=== PATIENT | female | born 1995 | race Caucasian/White ===

== ENCOUNTER 2016-10-22 16:56 | Emergency (ER) | payer OTHER ==
[~2016-10-22] VITALS: Ht 167.6 cm; Wt 89.5 kg
[~2016-10-22 16:56] MED LIST: DEPO-PROVER150 MG/ML IM; MOTRIN800 MG PO; VITAMIN D32000 UNI1 PO
[2016-10-22 17:50] LABS: POINT-OF-CARE METER ID UU13113778
[2016-10-22 19:00] LABS: HEMATOCRIT 45.1 % (36.0-46.0); MCH 29.7 PG (29.0-34.0); MCHC 34.4 G/DL (30.0-36.0); MCV 86.4 FL (83-99); MEAN PLAT.VOLUME 8.9 uM^3 (9.5-12.4); PLATELET COUNT 363 K/uL (156-360); RBC DIS.WIDTH-CV 12.3 % (11.8-14.6); RBC DIS.WIDTH-SD 38.8 % (39-53); RED BLOOD COUNT 5.22 M/uL (3.80-5.20); WHITE BLOOD COUNT 10.1 K/uL (4.1-10.2)
[2016-10-22 19:08] LABS: CHLORIDE 108 mEq/L (99-109); SODIUM 142 mEq/L (136-147)
[2016-10-22 19:10] LABS: GLUCOSE 88 mg/dL (70-99)
[2016-10-22 19:11] LABS: ANION GAP 13 MEQ/L (2-14)
[2016-10-22 19:14] LABS: GFR ESTIMATE (CALCULATED) > 59 mL/min/
[2016-10-22 19:15] LABS: UREA NITROGEN (BUN) 11 mg/dL (9-23)
[2016-10-22 19:21] LABS: TROP-I INTERPRETATION NEGATIVE; TROPONIN-I < 0.01 ng/mL (0.0-0.30)
[2016-10-22 19:30] LABS: QUANTITATIVE HCG < 4.0 MIU/ML
[2016-10-22 21:26] LABS: POINT-OF-CARE METER ID UU13113800
[2016-10-22 21:35] VITALS: BP 153/99
== END 2016-10-22 21:37 | disposition home or self-care (01) ==
LOC: EME 16:56
PROVIDERS: Physician Assistant Medical
DX: R42 Dizziness and giddiness (principal); G43.909 Migraine, unspecified, not intractable, without status migrainosus
CPT/HCPCS: 80048; 82948; 84443; 84484; 84702; 85027; 93005; 99281; 99284

== ENCOUNTER 2017-12-27 12:59 | Emergency (ER) | payer OTHER ==
[~2017-12-27] VITALS: Ht 167.6 cm; Wt 98.4 kg
[2017-12-27] MEDS ORDERED: TOBREX5 ML LEFT EYE (13:40)
[2017-12-27 13:49] VITALS: BP 131/101
== END 2017-12-27 13:58 | disposition home or self-care (01) ==
LOC: EME 12:59
DX: H00.015 Hordeolum externum left lower eyelid (principal); F17.200 Nicotine dependence, unspecified, uncomplicated; Z88.5 Allergy status to narcotic agent
CPT/HCPCS: 99281; 99283